=== PATIENT | male | born 1965 | race Caucasian/White ===

== ENCOUNTER 2019-05-10 18:20 | Emergency (ER) | payer BC ==
[~2019-05-10] VITALS: Ht 193 cm; Wt 136.1 kg
--- NOTE | 2019-05-10 18:25 | NUR ---
Placed in room 7 . Placed on cardiac technician, blood pressure machine and pulse oximeter. To gown for exam. Side rails up. Assumed care.
[2019-05-10 18:26] VITALS: BP_SYST 148
--- NOTE | 2019-05-10 18:30 | NUR ---
Patient arrived via POV, AAOx4, and ambulatory with steady gait. Patient accompanied by . Patient notes for the past few night he has been receiving alerts on his apple watch for low heart rate and resting heart rate at 47bpm. Patient states he has recently had head pressure intermittently. Patient states he has near daily nose bleeds, no nose bleed today. Patient states he also experiences lightheadedness. Patient states he frequently has cold feet, onset within a few months. No nausea, vomiting, diarrhea, or recent illness. No reports of chest pain, shortness of breath. Patient states he has recently been exercising and changed diet. Recently lost 24lbs since 04/14/2019. Patient states no medications taken daily, no history of thyroid problems. No alcohol or smoking. Patient states he has had episodes such as this approximately 2 years ago, and 12 years ago as well. 12 years ago he had angiocath, and no stent placement. 2 years ago, he followed up with cardiology with no acute findings and no angiocath at this time. He wore a heart monitor that indicated PVC's. Patient placed on pvc monitor. Will continue to follow up and monitor.
[2019-05-10] MEDS ORDERED: ASPIRIN 81 MG TAB.CHEW PO ONE (18:45)
[2019-05-10 19:12] LABS: BASOPHILS % (AUTO) 0.7 % (0.0-2.0); EOSINOPHILS # (AUTO) 0.2 K/uL (0.0-0.4); EOSINOPHILS % (AUTO) 3.1 % (0.0-4.0); HEMATOCRIT 41.1 % (36-54); HEMOGLOBIN 13.9 g/dL (14.0-18.0); LYMPHOCYTES # (AUTO) 2.1 K/uL (1.0-5.5); LYMPHOCYTES % (AUTO) 34.7 % (20.5-51.5); MEAN CORPUSCULAR HEMOGLOBIN 31 pg (27-31); MEAN CORPUSCULAR HGB CONC 34 % (32-36); MEAN CORPUSCULAR VOLUME 93 fL (79.0-98.0); MONOCYTES # (AUTO) 0.6 K/uL (0.0-1.0); MONOCYTES % (AUTO) 9.1 % (1.7-9.3); NEUTROPHILS # (AUTO) 3.1 K/uL (1.8-7.7); NEUTROPHILS % (AUTO) 52.4 % (40.0-70.0); PLATELET COUNT (AUTO) 206 K/uL (130-430); RED BLOOD CELL COUNT(AUTO) 4.44 MIL/uL (4.2-6.2); RED CELL DISTRIBUTION WIDTH 12.8 % (9.0-15.0)
--- NOTE | 2019-05-10 19:22 | NUR ---
Patient ambulatory to restroom. No dizziness, nausea, lightheadedness, or chest pain at this time. Patient provided with urine cup for collection.
[2019-05-10 19:26] LABS: CALCIUM 9.2 mg/dL (8.4-11.0); CREATININE 1.8 mg/dL (0.55-1.30); POTASSIUM 4.8 mmol/L (3.5-5.1)
--- NOTE | 2019-05-10 19:26 | NUR ---
# 20 gauge angiocath placed to left wrist/hand. Use of asceptic technique. Opsite placed over site. Blood return noted. Flushed with 10 cc of normal saline. No evidence of infiltration noted. Patient tolerated well.
[2019-05-10 19:42] LABS: ALBUMIN 3.7 g/dL (3.4-4.8); THYROID STIMULATING HORMONE 1.76 uIu/mL (0.36-3.74); TOTAL BILIRUBIN 0.4 mg/dL (0.0-1.0)
--- NOTE | 2019-05-10 19:51 | NUR ---
ER at bedside examining patient.
--- NOTE | 2019-05-10 23:16 | NUR ---
Dr. Parry at bedside speaking with pt.
[2019-05-10 23:51] VITALS: BP_SYST 114
--- NOTE | 2019-05-10 23:51 | NUR ---
Patient given written and verbal discharge instructions and verbalizes understanding. ER MD Dr. Parry discussed with patient the results and treatment provided. Patient in stable condition. ID arm band removed. IV catheter removed intact and dressing applied, no active bleeding. Patient educated on pain management and to follow up with PMD. Pain Scale 0/10. Opportunity for questions provided and answered. Medication side effect fact sheet provided.
== END 2019-05-10 23:51 | disposition home or self-care (01) ==
LOC: SED 18:20
DX: R00.2 Palpitations (principal); Z87.891 Personal history of nicotine dependence
CPT/HCPCS: 36415; 71045; 80053; 83880; 84443-TC; 84484; 85025; 85610-TC; 85730-TC; 99284